=== PATIENT | male | born 1955 | race African-American/Black ===

== ENCOUNTER 2019-07-18 09:17 | Emergency (ER) | payer OTHER ==
[~2019-07-18] VITALS: Ht 175.3 cm; Wt 127.0 kg
[2019-07-18] MEDS ORDERED: LIDOCAINE 1%/EPI 1:100,000 10 ML VIAL IJ ONE (10:00)
[2019-07-18] MEDS ORDERED: MORPHINE SULFATE 4 MG/ML CPJ (NOT FOR IM USE) IV ONE (10:00)
[2019-07-18] MEDS ORDERED: ONDANSETRON 4MG ODT PO ONE (10:00)
[2019-07-18 15:48] VITALS: BP 136/97
== END 2019-07-18 15:50 | disposition home or self-care (01) ==
LOC: ER 09:17
DX: S82.851A Displaced trimalleolar fracture of right lower leg, initial encounter for closed fracture (principal); I10 Essential (primary) hypertension; F43.10 Post-traumatic stress disorder, unspecified; X50.1XXA Overexertion from prolonged static or awkward postures, initial encounter; Y93.89 Activity, other specified; Y92.89 Other specified places as the place of occurrence of the external cause; Y99.8 Other external cause status
CPT/HCPCS: 27840; 73610; 96374; 99284; J2270; J3490; Q0162